=== PATIENT | female | born 1945 | race Caucasian/White ===

== ENCOUNTER → 2016-12-06 | Outpatient (CLI) | payer MEDICARE, BC ==
[~2016-12-06] MED LIST: DIAZEPAM PO; DILANTIN PO; ESTRACE PO; NEURONTIN PO; SYNTHROID PO
== END | disposition home or self-care (01) ==
LOC: CLAB 11:57
DX: Z51.81 Encounter for therapeutic drug level monitoring (principal); Z79.899 Other long term (current) drug therapy
CPT/HCPCS: 36415